=== PATIENT | male | born 1955 | race Caucasian/White ===

== ENCOUNTER → 2024-09-02 16:17 | Outpatient (REF) | payer OTHER, SELFPAY | LOC: HWRAD 16:17 | PROVIDERS: ATTENDING PHYSICIAN Family Medicine; REFERRING PHYSICIAN Internal Medicine Cardiovascular Disease | DX: R05.1 Acute cough (principal) | CPT/HCPCS: 71046 ==

== ENCOUNTER → 2024-09-06 10:14 | Outpatient (REF) | payer OTHER, SELFPAY | LOC: RCS 10:14 | PROVIDERS: ATTENDING PHYSICIAN Nurse Practitioner; FAMILY PHYSICIAN Family Medicine | DX: Z86.39 Personal history of other endocrine, nutritional and metabolic disease (principal); I44.7 Left bundle-branch block, unspecified | CPT/HCPCS: 93306 ==

== ENCOUNTER → 2024-10-07 11:35 | Outpatient (REF) | payer OTHER, SELFPAY | LOC: RAD 11:35 | PROVIDERS: ATTENDING PHYSICIAN Family Medicine | DX: R05.1 Acute cough (principal) | CPT/HCPCS: 71046 ==

== ENCOUNTER 2024-10-15 06:33 | Day surgery (SDC) | payer OTHER, SELFPAY ==
[2024-10-15] VITALS (14 sets, daily range): BP systolic 137–161; BP diastolic 77–94; BMI 34.0
[2024-10-15] MEDS: LOW STRENGTH ASPIRIN 324 MG PO (07:18)
[2024-10-15 07:21] LABS: Glucose - Point of Care 83 mg/dl (70-99)
[2024-10-15 07:22] LABS: Hematocrit 50.4 % (39.0-52.0); Hemoglobin 16.4 g/dL (13.0-18.0); Mean Corp Hgb Conc. 32.5 g/dL (33.0-37.0); Mean Corpuscular Hgb 28.1 pg (27.0-31.0); Mean Corpuscular Volume 86.3 fL (80.0-94.0); Mean Platelet Volume 10.1 fL (7.4-10.4); Platelet Count 277 10^3/uL (130-400); Red Blood Cell Count 5.84 10^6/uL (4.70-6.10); Red Cell Dist. Width 14.6 % (11.5-14.5); White Blood Cell Count 7.1 10^3/uL (4.8-10.8)
[2024-10-15 07:32] LABS: ALT (SGPT) 21 U/L (0-50); AST (SGOT) 23 U/L (17-59); Albumin 4.7 g/dl (3.5-5.0); Alkaline Phosphatase 43 U/L (38-126); Blood Urea Nitrogen 17 mg/dl (9-20); Carbon Dioxide 30 mmol/L (22-30); Chloride 105 mmol/L (98-107); Estimated Creatinine Clearance 104 ml/min; Glucose 94 mg/dl (70-99); Potassium 4.3 mmol/L (3.5-5.1); Sodium 143 mmol/L (135-145); Total Bilirubin 1.8 mg/dl (0.2-1.3); Total Protein 7.7 g/dl (6.3-8.2); eGFR > 60.00
--- NOTE | 2024-10-15 15:41 | ITS.CL.CATH ---
[facility] - Catheterization
Cardiac Catheterization
Procedure Report:
LEFT HEART CATHETERIZATION
Date of Procedure: October 15, 2024
Referring: Dr. Wili Frazier
PROCEDURES:
1. Left heart catheterization with coronary and single-plane left ventriculography
INDICATION: This is a 69-year-old gentleman with a past medical history notable for diabetes, hypertension,left bundle branch block on ECG. An echocardiogram was performed and notable for mild LV dysfunction estimated at 35-40% with septal and
inferior hypokinesis. He is now referred for coronary angiography in the setting of new LV dysfunction
ACCESS: Right radial artery, 6 [place] sheath
HEMODYNAMICS : (mmHg)
AO (s/d) : 144/80
LV (s/d) : 141/17
LVEDP : 27
CORONARY FINDINGS
DOMINANCE: Right
LEFT MAIN: Normal
LEFT ANTERIOR DESCENDING: The LAD arises normally from the left main and runs in the anterior interventricular groove. The LAD has only minor luminal irregularities over its course. The distal vessel wraps completely around the apex supplying a
portion of the inferior wall. The first diagonal branch is large and arises very proximally from the LAD and is widely patent.
CIRCUMFLEX: The circumflex gives rise to OM1 very proximally which runs into vascular distribution typical for a ramus intermedius. The circumflex terminates in a small OM 2
RIGHT CORONARY ARTERY: The RCA is a dominant vessel with a somewhat anterior takeoff from the aorta. Mild mild noncritical luminal irregularities are noted throughout the RCA. The PDA is a small to medium caliber vessel. The posterolateral branch
has a 60% proximal stenosis.
VENTRICULOGRAPHY: Left ventriculography is performed in [place] projection. The digital single-plane left ventricular ejection fraction is visually estimated at 35-40% with anterolateral, distal anterior, apical, and distal inferior hypokinesis. The
LV dysfunction appears out of proportion to the extent of coronary disease
SEDATION: 40 minutes of procedural sedation was utilized. An independent dental assistant medical assistant was present to assist with and help manage the patient's level of consciousness and physiologic status.
RADIATION SUMMARY: Fluoro Time (min): 9.6, Dose (mGy): 883, DAP (Gy.cm2) : 56
Closure Device: TR band
CONCLUSIONS
1. LV dysfunction that appears adequate proportion to the extent of coronary artery disease. The visually estimated ejection fraction was 35-40%
2. Mild coronary disease in mid LAD and in the posterolateral branch
RECOMMENDATIONS
1. Continued medical therapy for newly diagnosed dilated nonischemic cardiomyopathy. Follow-up has been arranged in our office in a few weeks and with Dr. Frazier in about 6 weeks. Will titrate guideline directed medical therapy. Should probably
have reevaluation of LVEF 3 months after initiation of good medical therapy
Copy to: Dr. Wili Frazier
== END 2024-10-15 11:50 | disposition home or self-care (01) ==
LOC: CATH 06:33
PROVIDERS: ATTENDING PHYSICIAN Internal Medicine Interventional Cardiology; FAMILY PHYSICIAN Family Medicine; OTHER PHYSICIAN Internal Medicine Cardiovascular Disease
DX: I25.10 Atherosclerotic heart disease of native coronary artery without angina pectoris (principal); I10 Essential (primary) hypertension; E78.2 Mixed hyperlipidemia; I42.9 Cardiomyopathy, unspecified; I44.7 Left bundle-branch block, unspecified; E11.9 Type 2 diabetes mellitus without complications; Z79.84 Long term (current) use of oral hypoglycemic drugs; Z79.4 Long term (current) use of insulin; Z79.82 Long term (current) use of aspirin
CPT/HCPCS: 99152; 99153; C1894; 80053; 82962; 85027; 93458; Q9967

== ENCOUNTER → 2025-01-15 09:06 | Outpatient (REF) | payer OTHER, SELFPAY | LOC: RCS 09:06 | PROVIDERS: ATTENDING PHYSICIAN Internal Medicine Cardiovascular Disease; FAMILY PHYSICIAN Family Medicine | DX: I10 Essential (primary) hypertension (principal); I44.7 Left bundle-branch block, unspecified; I42.9 Cardiomyopathy, unspecified | CPT/HCPCS: 93306 ==

== ENCOUNTER → 2025-04-28 11:11 | Outpatient (REF) | payer OTHER, SELFPAY | LOC: RCS 11:11 | PROVIDERS: ATTENDING PHYSICIAN Internal Medicine Cardiovascular Disease; FAMILY PHYSICIAN Family Medicine | DX: I34.0 Nonrheumatic mitral (valve) insufficiency (principal) | CPT/HCPCS: 93306 ==